=== PATIENT | male | born 1950 | race Caucasian/White ===

== ENCOUNTER 2018-07-02 08:33 | Emergency (ER) | payer BC, MEDICARE ==
[~2018-07-02] VITALS: Ht 172.7 cm; Wt 79.9 kg
[2018-07-02 08:35] VITALS: BP 153/84
== END 2018-07-02 09:03 | disposition home or self-care (01) ==
LOC: ED 08:55
DX: J01.00 Acute maxillary sinusitis, unspecified (principal)
CPT/HCPCS: 99283